=== PATIENT | female | born 1990 | race Caucasian/White ===

== ENCOUNTER 2022-02-28 23:00 | Emergency (ER) | payer OTHER ==
[2022-02-28 23:03] VITALS: BP 145/78; PULSE 99; TEMP 98.3; BMI 23.0
[2022-02-28] MEDS ORDERED: diazePAM 5 MG TABLET PO ONE (23:47)
[2022-02-28] MEDS ORDERED: ACETAMINOPHEN 500 MG TABLET (FP) PO ONE (23:47)
[2022-03-01] MEDS ORDERED: LIDOCAINE 5% TOPICAL PATCH TP ONE
[2022-03-01] MEDS ORDERED: diazePAM 5 MG TABLET ONE (00:07)
[2022-03-01] MEDS ORDERED: LIDOCAINE 5% TOPICAL PATCH ONE (00:07)
[2022-03-01] MEDS ORDERED: ACETAMINOPHEN 325 MG TABLET (FP) ONE (00:07)
[2022-03-01] MEDS ORDERED: LIDOCAINE PATCH REMOVAL MC ONE (12:00)
== END 2022-03-01 00:50 | disposition home or self-care (01) ==
LOC: JER 23:00
DX: M54.30 Sciatica, unspecified side (principal)
CPT/HCPCS: 84703; 99283-25